=== PATIENT | male | born 1970 | race Caucasian/White ===

== ENCOUNTER 2017-05-24 18:27 | Emergency (ER) | payer MEDICAID ==
[~2017-05-24] VITALS: Ht 185.4 cm; Wt 121.7 kg
[2017-05-24 18:31] VITALS: BP 168/112
--- NOTE | 2017-05-24 18:35 | NUR ---
PT AA&OX4 WITH EVEN AND STEADY GAIT; BL LUNG SOUNDS CLEAR, RR EVEN/UNLABORED; PT TO LOBBY AWAITING OPEN BED.
--- NOTE | 2017-05-24 18:56 | NUR ---
PATIENT TO BED 2 AT THIS TIME.
--- NOTE | 2017-05-24 19:15 | NUR ---
PATIENT PRESENTS TO ED WITH 46M BIB FAMILY C/O SHORTNESS OF BREATH AND COUGH X 3 DAYS. PT DENIES N/V/D; SKIN IS PINK/WARM/DRY; AAOX4 WITH EVEN AND STEADY GAIT; HR EVEN AND REGULAR; PATIENT STATES PAIN OF 0/10 AT THIS TIME; PATIENT POSITIONED FOR COMFORT; HOB ELEVATED; BEDRAILS UP X2; BED DOWN. ER MD MADE AWARE OF PT STATUS.
[2017-05-24] MEDS ORDERED: ALBUTEROL 0.083% 2.5 MG/3 ML NEBU INH ONE (20:00)
[2017-05-24] MEDS ORDERED: IBUPROFEN 800 MG TAB PO ONE (20:00)
[2017-05-24] MEDS ORDERED: guaiFENesin 20 MG/ML UDC PO ONE (20:00)
--- NOTE | 2017-05-24 20:16 | NUR ---
Respiratory Therapist at bedside for respiratory intervention.
[2017-05-24 21:00] VITALS: BP 148/107
--- NOTE | 2017-05-24 21:00 | NUR ---
dPatient discharged with v/s stable. Written and verbal after care instructions given and explained. Patient alert, oriented and verbalized understanding of instructions. Ambulatory with steady gait. All questions addressed prior to discharge. ID band removed. Patient advised to follow up with PMD. Rx of ROBITUSSIN, IBUPROFEN AND ALBUTEROL given. Patient educated on indication of medication including possible reaction and side effects. Opportunity to ask questions provided and answered.
== END 2017-05-24 21:00 | disposition home or self-care (01) ==
LOC: MED 18:27
DX: J20.8 Acute bronchitis due to other specified organisms (principal); R03.0 Elevated blood-pressure reading, without diagnosis of hypertension
CPT/HCPCS: 36415; 87804; 94640; 94760; 99284; J7613